=== PATIENT | female | born 1980 | race Caucasian/White ===

== ENCOUNTER 2021-09-11 16:40 | Outpatient (CLI) | payer OTHER ==
--- NOTE | 2021-09-12 11:41 | Ultrasound Report ---
PROCEDURE: Pelvic w/Transvaginal INDICATIONS: UTERINE FIBROIDS TECHNIQUE: Real-time scanning was performed of the pelvic organs, with image documentation. Additional endovagi nal scanning was necessary due to incomplete visualization of the adnexal and endometrial structures by transabdominal scanning. COMPARISON: None. FINDINGS: No pathologic free abdominal or pelvic fluid. Uterus: Uterus is enlarged measuring 14.5 x 2.1 x 9.9 cm. The endometrium measures 4.9 mm in combin ed thickness. Multiple areas of heterogeneous echogenicity are identified within the uterus. The largest are as follows: Mid anterior intramural focus measuring 5.9 x 5.3 x 6.3 cm Right lateral subserosal measuring 5.5 x 3.6 x 4.0 cm Left lateral subserosal measuring 6.1 x 5.1 x 5.9 cm. Ovaries: Right ovary measures 2.4 x 1.5 x 3.1 cm, volume 5.7 cc. Left ovary measures 1.5 x 1.7 x 2.8 cm, volume 3.8 cc. IMPRESSION: Multiple areas of heterogeneous echogenicity within the uterus most suggestive of fibroids. Reviewed by: Jenna Rehman MD on 09/12/2021 11:40 AM PDT Approved by: Jenna Rehman MD on 09/12/2021 11:40 AM PDT Station ID: [id number]
== END 2021-09-11 16:41 | disposition home or self-care (01) ==
LOC: DI 16:40
PROVIDERS: ATTEND Obstetrics & Gynecology
DX: D25.9 Leiomyoma of uterus, unspecified (principal); R93.89 Abnormal findings on diagnostic imaging of other specified body structures

== ENCOUNTER 2021-10-22 10:42 | Outpatient (CLI) | payer OTHER ==
[2021-10-22 11:57] LABS: BASOPHILS # (AUTO) 0.1 10^3/uL (0.0-0.1); BASOPHILS % (AUTO) 0.9 %; EOSINOPHILS # (AUTO) 0.3 10^3/uL (0.0-0.7); EOSINOPHILS % (AUTO) 4.2 %; HCT - HEMATOCRIT 33.9 % (37.0-47.0); HGB - HEMOGLOBIN 10.2 g/dL (12.0-16.0); LYMPHOCYTES # (AUTO) 1.7 10^3/uL (1.5-3.5); LYMPHOCYTES % (AUTO) 26.5 %; MEAN CORPUSCULAR HEMOGLOBIN 22.7 pg (27.0-31.0); MEAN CORPUSCULAR HGB CONC 30.1 g/dL (32.0-36.0); MEAN CORPUSCULAR VOLUME 75.5 fL (81.0-99.0); MEAN PLATELET VOLUME 9.5 fL (7.9-10.8); MONOCYTES # (AUTO) 0.3 10^3/uL (0.0-1.0); MONOCYTES % (AUTO) 4.9 %; PLT - PLATELET COUNT 421 10^3/uL (130-450); RED BLOOD COUNT 4.49 10^6/uL (4.20-5.40); RED CELL DISTRIBUTION WIDTH 19.1 % (12.0-15.0); WHITE BLOOD COUNT 6.4 x10^3/uL (4.8-10.8)
== END 2021-10-22 10:43 | disposition home or self-care (01) ==
LOC: LAB 10:42
PROVIDERS: ATTEND Obstetrics & Gynecology
DX: Z01.812 Encounter for preprocedural laboratory examination (principal); D25.9 Leiomyoma of uterus, unspecified; Z20.822 Contact with and (suspected) exposure to COVID-19
CPT/HCPCS: 36415; 85025; 86850; 86900; 86901; 86920

== ENCOUNTER 2021-10-29 07:37 | Outpatient (CLI) | payer OTHER ==
[2021-10-29 09:09] LABS: HCG UR QUAL NEGATIVE
== END 2021-10-29 07:38 | disposition home or self-care (01) ==
LOC: LAB 07:37
PROVIDERS: ATTEND Obstetrics & Gynecology
DX: Z01.812 Encounter for preprocedural laboratory examination (principal); D25.9 Leiomyoma of uterus, unspecified; Z20.822 Contact with and (suspected) exposure to COVID-19
CPT/HCPCS: 81025; 86850; 86900; 86901; 86920

== ENCOUNTER 2021-10-30 08:15 | Day surgery (SDC) | payer OTHER ==
[~2021-10-30 08:15] MED LIST: ACETAMINOPHEN 500 MG TABLET PO ONE; BUPIVACAINE 0.5% PF 10 ML VIAL ONE; CEFAZOLIN SODIUM IN 0.9 % NACL 2 GM/100 ML BAG IV ONE; CELECOXIB 100 MG CAPSULE PO ONE; GABAPENTIN 400 MG CAPSULE ONE; PHENAZOPYRIDINE 100 MG TABLET PO ONE; VASOPRESSIN 20 UNIT/ML VIAL ONE; metroNIDAZOLE 500 MG/100 ML 500 MG/100 ML BAG ONE
[2021-10-30] MEDS ORDERED: LACTATED RINGERS 1,000 ML IV ONE ×2 (08:22→14:44)
--- NOTE | 2021-10-30 08:44 | ANESTHESIA ---
Pre-Anesthesia VS, & Labs - Diagnosis uterine fibroids - Procedure abdominal myomectomy Height: 5 ft 5 in Weight (kg): 78.5 kg Body Mass Index: 28.8 BMI Classification: Overweight - Is Patient ?: No (-hcg 10/29) - Lab Results Lab results reviewed: Yes Home Medications and Allergies Cetirizine [ZyrTEC] 10 mg PO DAILY PRN 10/16/21 Allergies/Adverse Reactions: Allergies Allergy/AdvReac Type Severity Reaction Status Date / Time No Known Drug Allergies Allergy Verified 10/16/21 12:09 Anes History & Medical History - Anesthetic History Anesthesia Complications: reports: No previous complications Family history of Anesthesia Complications: Denies Family history of Malignant Hyperthermia: Denies - Medical History Cardiovascular: reports: None Pulmonary: reports: None Gastrointestinal: reports: None Urinary: reports: None Musculoskeletal: reports: None Endocrine/Autoimmune: reports: None Skin: reports: None - Surgical History Gynecologic: reports: Other Exam General: Alert, Oriented x3, Cooperative Mouth Openin Fingerbreadth Neck Mobility: Normal Mallampati classification: I, II Thyromental Distance: 4-6 cm Respiratory: Lungs clear, Normal breath sounds, No respiratory distress Cardiovascular: Regular rate Neurological: Normal speech Mental/Cognitive Status: Alert/Oriented X3, Normal for patient Cognitive Status: Within normal limits Plan Anesthesia Type: General, Transverse Abdominis Plane (TAP) Block (Bilat) Regional Block: Per Surgeon's request for Post Op pain control Consent for Procedure(s) Verified and Reviewed: Yes Code Status: Attempt Resuscitation ASA classification: 1-Healthy patient Is this case an emergency?: No
[2021-10-30] MEDS ORDERED: PROPOFOL 200 MG/20 ML VIAL IVP ONE (09:15)
[2021-10-30] MEDS ORDERED: ROCURONIUM 50 MG/5 ML VIAL ONE ×3 (09:15→11:52)
[2021-10-30] MEDS ORDERED: DEXAMETHASONE 4 MG/ML VIAL ONE ×2 (09:15→09:19)
[2021-10-30] MEDS ORDERED: LIDOCAINE-MPF 2% 5 ML VIAL ONE (09:15)
[2021-10-30] MEDS ORDERED: ONDANSETRON 4 MG/2 ML VIAL ONE ×2 (09:15→11:17)
[2021-10-30] MEDS ORDERED: fentaNYL 100 MCG/2 ML VIAL ONE ×3 (09:18→15:05)
[2021-10-30] MEDS ORDERED: MIDAZOLAM 2 MG/2 ML VIAL ONE (09:18)
[2021-10-30] MEDS ORDERED: ROPIVACAINE 0.5% PF 20 ML AMPULE ONE (09:19)
[2021-10-30] MEDS ORDERED: SODIUM CHLORIDE 0.9% 10 ML VIAL IVP ONE (09:24)
[2021-10-30] MEDS ORDERED: ATROPINE ABBOJECT 1 MG/10 ML SYRINGE IVP PRN (09:37)
[2021-10-30] MEDS ORDERED: ePHEDrine 50 MG/ML VIAL IVP PRN (09:37)
[2021-10-30] MEDS ORDERED: METOCLOPRAMIDE 10 MG/2 ML VIAL IVP PRN (09:37)
[2021-10-30] MEDS ORDERED: NALOXONE 0.4 MG/ML VIAL IVP PRN (09:37)
[2021-10-30] MEDS ORDERED: HYDROmorphone 0.5 MG/0.5 ML SYRINGE IVP PRN (09:37)
[2021-10-30] MEDS ORDERED: ONDANSETRON 4 MG/2 ML VIAL IVP PRN (09:37)
[2021-10-30] MEDS ORDERED: MORPHINE 2 MG/ML CARPUJECT IVP PRN (09:37)
[2021-10-30] MEDS ORDERED: VASOPRESSIN 20 UNIT/ML VIAL IVP ONE ×2 (09:48)
[2021-10-30] MEDS ORDERED: LACTATED RINGERS 1,000 ML IV SCH (10:00)
[2021-10-30] MEDS ORDERED: TRANEXAMIC ACID 1,000 MG/10 ML VIAL ONE (10:07)
[2021-10-30] MEDS ORDERED: VASOPRESSIN 20 UNIT/ML VIAL ONE (10:26)
[2021-10-30] MEDS ORDERED: SEVOFLURANE 250 ML LIQUID INH ONE (12:02)
[2021-10-30] MEDS ORDERED: SUGAMMADEX 200 MG/2 ML VIAL IVP ONE (14:00)
[2021-10-30] MEDS ORDERED: KETOROLAC 30 MG/ML VIAL ONE (14:18)
[2021-10-30] MEDS ORDERED: oxyCODONE 5 MG TABLET PO PRN (14:48)
[2021-10-30] MEDS ORDERED: HYDROmorphone 1 MG/ML CARPUJECT IVP PRN (14:48)
[2021-10-30] MEDS ORDERED: SCOPOLAMINE PATCH TOP PRN (14:48)
[2021-10-30] MEDS ORDERED: SIMETHICONE CHEW 80 MG TABLET PO PRN (14:48)
[2021-10-30] MEDS ORDERED: ONDANSETRON ODT 4 MG TABLET TL PRN (14:48)
--- NOTE | 2021-10-30 14:54 | OPERATIVE REPORT ---
Operative Report - General Procedure Date: 10/30/21 Planned Procedure: Abdominal myomectomy with possible hysterectomy and cystoscopy Pre-Op Diagnosis: uterine fibroids, desires fertility Procedure Performed: Abdominal myomectomy Post Op Diagnosis: Same - Procedure Note Primary Surgeon: Alfreda Asher MD Secondary Surgeon: Edin Higuera MD Anesthesia Provider: Bong Carmona CRNA Anesthesia Technique: General ET tube Pathology: Multiple uterine fibroid, 36 in total, weighing 355 g in aggregate IV Fluids (mL): 2,000 Estimated Blood Loss (mL): 250 Urine Output (mL): 150 Indications: Patient is a 40 yo G0 who presents for abdominal myomectomy Patient was seen 08/25/21 for presumed uterine fibroids Patient reports that she has had a hysteroscopy for fibroids in the past. She reports that she has gained a lot of weight but she could see the fibroids through her abdomen at one point. She has been sexually active without contraception for 7 years without unintended . SA is rare. Its been about a year since last episode. No pain with SA. Has menses every month. Very painful. Has soaked clothing before she adapted with use of pads and tampons together. Had HPV in 2009; s/p HPV vaccine. CT at age 17/20. Menses last 7 days in duration. Last pap on record was 10/22 and was wnl. Patient thinks she had one in 2019. Has tried Xulane in the past with poor tolerance. Patient underwent a pelvic us on 09/11/21 that showed the following: "No pathologic free abdominal or pelvic fluid. Uterus: Uterus is enlarged measuring 14.5 x 2.1 x 9.9 cm. The endometrium measures 4.9 mm in combined thickness. Multiple areas of heterogeneous echogenicity are identified within the uterus. The largest are as follows: Mid anterior intramural focus measuring 5.9 x 5.3 x 6.3 cm Right lateral subserosal measuring 5.5 x 3.6 x 4.0 cm Left lateral subserosal measuring 6.1 x 5.1 x 5.9 cm. Ovaries: Right ovary measures 2.4 x 1.5 x 3.1 cm, volume 5.7 cc. Left ovary measures 1.5 x 1.7 x 2.8 cm, volume 3.8 cc. IMPRESSION: Multiple areas of heterogeneous echogenicity within the uterus most suggestive of fibroids." We discussed options for management. Patient reports that wants one additional and she is not ready for hysterectomy at this time. She presents for abdominal myomectomy. Findings: Large distorted uterus with greater than 36 fibroids of assorted dimension. Normal appearing tubes and ovaries Complications: None - Other Other Information/Narrative: Risks benefits and alternatives of the procedure were discussed. Written informed consent was obtained. Patient was taken to the operating room where spinal anesthesia was placed and found to be adequate. She was prepped and draped in the usual sterile fashion in the dorsal supine position with a leftward tilt. Garsia catheter was in place. SCDs were in place and activated. Cefazolin 2 g IV was given as a preoperative antibiotic. Preoperative timeout was performed. A TAP block was placed prior to starting the procedure. A Pfannenstiel incision was made in the skin above and below the scar tissue from the prior incisions with a scalpel. The incisional scar tissue was then grasped and elevated with Allis clamps. It was excised from the underlying tissue using cautery. The incision was then carried through the underlying layer of fascia in a combination of cautery and blunt dissection. The fascia was incised in the midline, and the incision was extended laterally with the Bovie cautery. The superior aspect of the fascial incision was grasped with the Jose clamps, elevated, and the underlying rectus muscles were dissected off bluntly and sharply using the Guzman scissors. Attention was then turned to the inferior aspect of the incision which in a similar fashion was grasped, tented up with Jose clamps, and the underlying rectus muscles dissected off with cautery and blunt dissection. There was substantial scar tissue and the midline of the rectus muscles was carefully with blunt dissection using hemostats. The peritoneum was identified, tented up, and entered bluntly. The peritoneal incision was extended superiorly and inferiorly with good visualization of the bladder. The uterus was enlarged and grossly distorted due to numerous fibroids. It was grasped and elevated out of the abdomen through the incision. A moistened surgical towel was wrapped around the base of the uterus, providing a boundary from the underlying incision and surrounding organs. The tubes and ovaries appeared normal bilaterally. A solution of vasopressin (20 units in 100 cc of NS) was injected into the more prominent subserosal fibroid present on the fundus. Cautery was then used to make an incision across the top surface of the fibroid. Allis clamps grasped the edges of the serosa and hemostat was used to bluntly dissect the fibroid from the surrounding tissue. The fibroid was excised in a combination of sharp and blunt dissection as well as cautery. Once the fibroid was removed, any bleeding was controlled with pursestring sutures using 2-0 Vicryl. This process was repeated with each additional fibroid. There were two mid sized exophytic fibroids at the right fundo-lateral postion and a large fibroid, also on the right and slightly lower and posterior on the right. These were removed under the technique noted above. As much as possible, we attempted to removed surrounding additional fibroids from within the existing defects created by excising the aforementioned fibroids. Anteriorly, there was a moderate sized fibroid in the lower uterine segment, slightly anterior to the bladder. An incision was made anterior to the bladder in the peritoneum and a bladder flap was created with sharp and blunt dissection. Once the bladder was mobilized, an incision was made in the anterior uterine wall overlying the fibroid. The fibroid was dissected from the uterine wall in the same manner noted above. This was the only fibroid that penetrated into the endometrial cavity and resulted in a full thickness defect. The uterine body was palpated and fibroids were serially identified and removed using the aforementioned technique, attempting to deliver as many fibroids as fe asible through existing uterine defects. In total, 36 fibroids were removed. Once all fibroids were removed, the defects were closed with a pursetring suture using 2-0 Vicryl for deep defects, followed with a series of running locked sutures more superficially, using 0-Vicryl. Finally, a running imbricating layer was placed over each of the external defects using 0-Vicryl. The three fundal defects were closed in a running imbricating suture. This was repeated with the anterior defect and in the postero-lateral defect. Anatomical presentation of the uterus had been restored. Good hemostasis was noted. The uterus was irrigated and the pelvis was irrigated using sloppy wet laparotomy sponges. The uterus was then replaced into the pelvis. It was examined in situ and good hemostasis was again noted. Sponges counts were noted to be correct prior to closing the abdomen. The peritoneum was then reapproximated with 2-0 Vicryl in a running fashion. The rectus muscles were then reapproximated using interrupted [id number] sutures using 2-0 Chromic. Good hemostasis was noted. The subfascial space was inspected and good hemostasis was noted. The fascia was then closed using 0 Vicryl in a running fashion starting from the left lateral edge to the midline. A second suture was used to close the fascia in a running fashion starting from the right lateral edge and meeting in the midline, agian using 0-Vicryl. The subcutaneous tissue was then irrigated and closed using 2-0 chromic in a running subcutaneous suture. Skin was closed in a running subcuticular suture using 4-0 Monocryl. Steri-Strips were applied to reinforce the incsion and dressing was applied. At the end of the procedure all sponge, needle and instrument counts were correct. The patient was extubated and taken to recovery in stable condition. 22 Modifier: This procedure was more difficult than average given the large bulk and number of the fibroids removed. Over 36 fibroids were removed, totally 355g in weight. As such, extended operative time was required.
[2021-10-30] MEDS: fentaNYL 100 MCG/2 ML VIAL IVP PRN ×3 (14:59→15:30)
--- NOTE | 2021-10-30 15:41 | ANESTHESIA POST OP EVALUATION ---
Anesthesia Post Eval - Post Anesthesia Eval Vitals: Last Vital Signs Temp 37 C 10/30/21 15:35 Pulse 83 10/30/21 15:35 Resp 15 10/30/21 15:35 BP 157/93 H 10/30/21 15:35 Pulse Ox 100 10/30/21 15:35 CV Function Including HR & BP: Stable Pain Control: Satisfactory Nausea & Vomiting: Negative Mental Status: Baseline (drowsy) Respiratory Status: Airway Patent Hydration Status: Satisfactory Anesthesia Complications: None
[2021-10-30] MEDS: ACETAMINOPHEN 500 MG TABLET PO SCH ×2 (16:24→21:05)
[2021-10-30] MEDS: LACTATED RINGERS 1,000 ML IV SCH (16:25)
[2021-10-30] MEDS: GABAPENTIN 300 MG CAPSULE PO SCH ×2 (16:25→21:05)
[2021-10-30] MEDS ORDERED: diphenhydrAMINE INJ 50 MG/ML VIAL IVP PRN (16:40)
[2021-10-30] MEDS ORDERED: HYDROmorphone PCA 20MG/100ML IV PRN (16:40)
[2021-10-30] MEDS: KETOROLAC 30 MG/ML VIAL IVP SCH ×2 (19:00→23:51)
[2021-10-30] MEDS: DOCUSATE SODIUM 100 MG CAPSULE PO SCH (21:05)
[2021-10-31] MEDS: LACTATED RINGERS 1,000 ML IV SCH ×2 (02:19→11:50)
[2021-10-31] MEDS: KETOROLAC 30 MG/ML VIAL IVP SCH ×2 (05:09→11:46)
[2021-10-31] MEDS: ACETAMINOPHEN 500 MG TABLET PO SCH ×2 (05:09→13:44)
[2021-10-31] MEDS: GABAPENTIN 300 MG CAPSULE PO SCH ×2 (05:10→13:45)
[2021-10-31 05:42] LABS: BASOPHILS % (AUTO) 0.2 %; EOSINOPHILS # (AUTO) 0.2 10^3/uL (0.0-0.7); EOSINOPHILS % (AUTO) 1.7 %; HCT - HEMATOCRIT 24.1 % (37.0-47.0); HGB - HEMOGLOBIN 7.4 g/dL (12.0-16.0); LYMPHOCYTES # (AUTO) 1.2 10^3/uL (1.5-3.5); MEAN CORPUSCULAR HGB CONC 30.7 g/dL (32.0-36.0); MEAN CORPUSCULAR VOLUME 74.8 fL (81.0-99.0); MEAN PLATELET VOLUME 10.1 fL (7.9-10.8); MONOCYTES # (AUTO) 1.3 10^3/uL (0.0-1.0); MONOCYTES % (AUTO) 8.8 %; NEUTROPHILS # (AUTO) 11.7 10^3/uL (1.5-6.6); NEUTROPHILS % (AUTO) 80.8 %; PLT - PLATELET COUNT 274 10^3/uL (130-450); RED BLOOD COUNT 3.22 10^6/uL (4.20-5.40); RED CELL DISTRIBUTION WIDTH 18.8 % (12.0-15.0); WHITE BLOOD COUNT 14.4 x10^3/uL (4.8-10.8)
[2021-10-31] MEDS ORDERED: ENOXAPARIN 40 MG/0.4 ML SYRINGE SUBQ SCH (09:00)
[2021-10-31] MEDS: DOCUSATE SODIUM 100 MG CAPSULE PO SCH (09:08)
[2021-10-31] MEDS ORDERED: CYANOCOBALAMIN 1,000 MCG/ML VIAL IM ONE (09:47)
[2021-10-31] MEDS ORDERED: FERRIC GLUCONATE 125 MG in SODIUM CHLORIDE 0.9% 100ML 100 ML IV ONE (10:30)
--- NOTE | 2021-10-31 11:46 | PROVIDER PROGRESS NOTE ---
Subjective - Prog Note Date Prog Note Date: 10/31/21 Prog Note Time: 11:40 - Subjective Pt reports feeling: Improved Subjective: Patient is doing very well. Up and ambulating. Pain is well managed with minimal use of RIB KNITTER. Voiding. Tolerating po. No bleeding. Objective - Vital Signs/Intake & Output Reviewed Vital Signs: Yes Vital Signs: Vital Signs x48h Temp Pulse Resp BP BP Pulse Ox 10/31/21 10:53 16 10/31/21 09:00 17 10/31/21 07:22 99.1 F 78 16 103/51 L 98 10/31/21 06:57 16 10/31/21 05:40 98.6 F 86 16 118/58 L 97 10/31/21 05:00 18 Intake & Output: Intake & Output 10/28/21 10/29/21 10/30/21 10/31/21 23:59 23:59 23:59 23:59 Intake Total 1510 1850 Output Total 1550 2225 Balance -40 -375 - Objective General Appearance: positive: No acute distress Neck: positive: Nml inspection Respiratory: positive: No respiratory distress Cardiovascular: positive: Other (RR) Abdomen: positive: Other (Soft and ND. Minimal TTP, appropriately tender relative to procedure.) Skin: positive: Color nml Extremities: positive: Non-tender, No pedal edema Neurologic/Psychiatric: positive: Oriented x3 - Lab Results Fish Bones: 10/31/21 05:09 Other Labs: Lab Results x24hrs 10/31/21 Range/Units 05:09 WBC 14.4 H (4.8-10.8) x10^3/uL RBC 3.22 L (4.20-5.40) 10^6/uL Hgb 7.4 L (12.0-16.0) g/dL Hct 24.1 L (37.0-47.0) % MCV 74.8 L (81.0-99.0) fL MCH 23.0 L (27.0-31.0) pg MCHC 30.7 L (32.0-36.0) g/dL RDW 18.8 H (12.0-15.0) % Plt Count 274 (130-450) 10^3/uL MPV 10.1 (7.9-10.8) fL Neut # (Auto) 11.7 H (1.5-6.6) 10^3/uL Lymph # (Auto) 1.2 L (1.5-3.5) 10^3/uL [place] # (Auto) 1.3 H (0.0-1.0) 10^3/uL Eos # (Auto) 0.2 (0.0-0.7) 10^3/uL Baso # (Auto) 0.0 (0.0-0.1) 10^3/uL Absolute Nucleated RBC 0.00 x10^3/uL Nucleated RBC % 0.0 /100WBC Assessment/Plan - Problem List (1) Status post myomectomy Impression: POD#1: Patient is doing remarkably well. Up and ambulating Tolerating po Minimal use of RIB KNITTER Transition to po pain meds Anemia: -IV iron and B12 this am VTE PPX: -Needs Lovenox at PPx Discharge at 15:00 Routine discharge instructions
[2021-10-31 13:20] VITALS: BP 110/52
== END 2021-10-31 14:15 | disposition home or self-care (01) ==
LOC: SDS 08:15 → MS2 13:00 → SDS 10-31 14:15
PROVIDERS: ATTEND Obstetrics & Gynecology
PROC: 0UB90ZZ Excision of Uterus, Open Approach (ICD-10-PCS; principal; 2021-10-30 08:45)
DX: D25.9 Leiomyoma of uterus, unspecified (principal); D64.9 Anemia, unspecified
CPT/HCPCS: 36415; 58146; 85025; A9270; J0690; J1170; J1650; J2916; J3490; J7120; Q0162; 86850; 86900; 86901; 86920